=== PATIENT | male | born 1965 | race Caucasian/White ===

== ENCOUNTER 2019-04-19 15:00 | Outpatient (CLI) | payer BC | END 2019-04-19 15:01 | disposition home or self-care (01) | LOC: SLEEPLAB 15:00 | PROVIDERS: ATTEND Dentist General Practice | DX: G47.33 Obstructive sleep apnea (adult) (pediatric) (principal) | CPT/HCPCS: 95806 ==

== ENCOUNTER 2021-01-31 19:30 | Outpatient (CLI) | payer BC | END 2021-01-31 19:31 | disposition home or self-care (01) | LOC: SLEEPLAB 19:30 | PROVIDERS: ATTEND Family Medicine Sports Medicine | DX: G47.33 Obstructive sleep apnea (adult) (pediatric) (principal); G47.10 Hypersomnia, unspecified; I10 Essential (primary) hypertension; G47.00 Insomnia, unspecified | CPT/HCPCS: 95811 ==

== ENCOUNTER 2022-01-13 11:15 | Outpatient (CLI) | payer BC ==
[2022-01-13 12:29] LABS: Hemoglobin 12.7 g/dL (13.5-17.5); Mean Corpuscular HGB CONC 32.5 g/dL (32.0-36.0); Mean Corpuscular Volume 83.2 fl (81.2-95.1); Mean Platelet Volume 10.4 fl (7.4-10.4); Platelet Count 242 10x3/uL (150-450); RBC Distribution Width 13.3 % (11.5-14.5); White Blood Cell (WBC) Count 7.6 10x3/uL (3.5-10.5)
[2022-01-13 12:40] LABS: INR-International Normal Ratio 0.9; PTT 25.8 sec (22.0-33.0); Prothrombin Time 10.3 sec (9.5-12.1)
[2022-01-13 12:55] LABS: Anion Gap 15 mmol/L (10-20); BUN (Urea Nitrogen) 9 mg/dL (8.4-25.7); Calc. Creatinine Clearance 0 mL/min (70-130); Calcium 9.5 mg/dL (7.8-10.44); Carbon Dioxide 22 mmol/L (22-29); Chloride 105 mmol/L (98-107); Glucose 132 mg/dL (70-105); Potassium 4.3 mmol/L (3.5-5.1); Sodium 138 mmol/L (136-145)
[2022-01-13 18:46] LABS: SARS-CoV-2 PCR by NAA Not Detected (NotDetected)
== END 2022-01-13 11:16 | disposition home or self-care (01) ==
LOC: LABBT 11:15
PROVIDERS: ATTEND Urology
DX: Z01.818 Encounter for other preprocedural examination (principal); N40.1 Benign prostatic hyperplasia with lower urinary tract symptoms; R33.8 Other retention of urine; R39.11 Hesitancy of micturition; R97.20 Elevated prostate specific antigen [PSA]; R39.16 Straining to void; Z20.822 Contact with and (suspected) exposure to COVID-19
CPT/HCPCS: 80048; 85027; 85610; 85730; 93005; 93010; U0003; U0005

== ENCOUNTER 2022-01-16 06:34 | Day surgery (SDC) | payer BC ==
[2022-01-15 14:57] VITALS: BMI 26.9
[2022-01-16] MEDS ORDERED: Levofloxacin 500 mg/D5W 100 ml Premix Bag ONE (08:34)
[2022-01-16] MEDS ORDERED: Lidocaine 1% PF 5 ML VIAL ONE (08:39)
[2022-01-16] MEDS ORDERED: PROPOFOL 200 MG/20 ML VIAL ONE (08:39)
[2022-01-16] MEDS ORDERED: Labetalol HCl 100 MG/20 ML VIAL ONE (08:39)
[2022-01-16] MEDS ORDERED: B & O ONE (09:16)
[2022-01-16] MEDS ORDERED: Morphine 2 MG/ML VIAL ONE (10:00)
[2022-01-16] MEDS ORDERED: Oxybutynin 5 MG TAB ONE (10:47)
[2022-01-16] MEDS ORDERED: Phenazopyridine HCl 100 MG TAB ONE ×3 (10:47→11:17)
[2022-01-16] MEDS ORDERED: Phenazopyridine HCl 100 MG TAB PO SCH (11:00)
[2022-01-16] MEDS ORDERED: Oxybutynin 5 MG TAB PO SCH (11:00)
== END 2022-01-16 12:18 | disposition home or self-care (01) ==
LOC: SDC 06:34
PROVIDERS: ATTEND Urology
PROC: 0T7D8DZ Dilation of Urethra with Intraluminal Device, Via Natural or Artificial Opening Endoscopic (ICD-10-PCS; principal; 2022-01-16)
DX: N40.1 Benign prostatic hyperplasia with lower urinary tract symptoms (principal); R33.8 Other retention of urine; N13.8 Other obstructive and reflux uropathy; R39.16 Straining to void; R39.11 Hesitancy of micturition; I10 Essential (primary) hypertension; M10.9 Gout, unspecified; K21.9 Gastro-esophageal reflux disease without esophagitis; F17.290 Nicotine dependence, other tobacco product, uncomplicated; Z79.82 Long term (current) use of aspirin; Z79.84 Long term (current) use of oral hypoglycemic drugs; Z79.899 Other long term (current) drug therapy
CPT/HCPCS: J1956; J2270; J2704; L8699

== ENCOUNTER 2022-01-27 02:18 | Observation (INO) | payer BC ==
[2022-01-27 03:10] LABS: #Basophils 0.1 thou/uL (0.0-0.2); #Eosinphils 0.4 thou/uL (0.0-0.7); #Lymphocytes 2.7 thou/uL (1.20-3.40); #Monocytes 0.6 thou/uL (0.11-0.59); %Basophils 0.6 % (0.0-1.0); %Eosinophils 3.8 % (0.0-10.0); %Lymphocytes 23.2 % (21.0-51.0); %Monocytes 4.6 % (0.0-10.0); %Neutrophils 67.8 % (42.0-75.0); Hemoglobin 12.5 g/dL (14.0-18.0); Mean Corpuscular HGB CONC 32.7 g/dL (32.0-36.0); Mean Corpuscular Hemoglobin 28.1 pg (27.0-31.0); Mean Platelet Volume 8.1 fL (7.4-10.4); Platelet Count 216 thou/uL (130-400); RBC Distribution Width 12.7 % (11.5-14.5); Red Blood Cell (RBC) Count 4.43 mill/uL (4.70-6.10); White Blood Cell (WBC) Count 11.8 thou/uL (4.8-10.8)
[2022-01-27 03:29] LABS: Anion Gap 15 mmol/L (10-20); BUN (Urea Nitrogen) 8 mg/dL (8.4-25.7); Calc. Creatinine Clearance 0 mL/min (70-130); Calcium 9.6 mg/dL (7.8-10.44); Carbon Dioxide 18 mmol/L (22-29); Chloride 108 mmol/L (98-107); Glucose 141 mg/dL (70-105); Potassium 4.3 mmol/L (3.5-5.1); Sodium 137 mmol/L (136-145)
[2022-01-27 05:12] LABS: Bilirubin Moderate (Negative); Blood, Urine Large (Negative); Glucose, Urine (Dipstick) 100 mg/dL (Negative); Ketone, Urine 15 mg/dL (Negative); Leukocyte Moderate (Negative); Nitrite Positive (Negative); Protein, Urine (Dipstick) > or equal to 300 mg/dL (Neg-Trace); Specific Gravity, Urine 1.015 (1.005-1.030); pH, Urine 7.5 (5.0-9.0)
[2022-01-27 05:19] LABS: Clarity Opaque (Clear); RBC/HPF Greater than 50 HPF (0-3); WBC/HPF 0-3 HPF (0-3)
[2022-01-27] MEDS ORDERED: Cefepime 2 GM VIAL ONE (06:20)
[2022-01-27] MEDS ORDERED: cefTRIAXone\\ROCEPHIN 2 GM VIAL ONE (06:22)
[2022-01-27] MEDS ORDERED: Oxybutynin 5 MG TAB PO SCH (08:15)
[2022-01-27 10:14] LABS: SARS-CoV-2 NAA Rapid Test Not Detected (NotDetected)
[2022-01-27] MEDS ORDERED: Hyoscyamine Sulfate SL 0.125 mg Tablet ONE (13:14)
[2022-01-27] MEDS ORDERED: fentaNYL Citrate/PF 100 MCG/2 ML SYRINGE ONE ×2 (15:00→16:32)
[2022-01-27] MEDS ORDERED: Midazolam HCl 2 mg/2 ml Vial ONE (16:31)
[2022-01-27] MEDS ORDERED: Famotidine/PF 20 mg/2ml Vial ONE (16:32)
[2022-01-27] MEDS ORDERED: Ondansetron PF 4 MG/2 ML Vial ONE (16:50)
[2022-01-27] MEDS ORDERED: Lidocaine 1% PF 5 ML VIAL ONE (16:50)
[2022-01-27] MEDS ORDERED: Dexamethasone 20 MG/5 ML VIAL ONE (16:50)
[2022-01-27] MEDS ORDERED: PROPOFOL 200 MG/20 ML VIAL ONE (16:50)
[2022-01-27] MEDS ORDERED: B & O ONE (16:56)
[2022-01-27] MEDS ORDERED: Promethazine HCl 25 MG/ML VIAL IM PRN (17:39)
[2022-01-27] MEDS ORDERED: HYDROmorphone 2 MG/ML VIAL SLOW IVP PRN (17:39)
[2022-01-27] MEDS ORDERED: Meperidine HCl/PF 25 MG/ML VIAL SLOW IVP PRN (17:39)
[2022-01-27] MEDS ORDERED: Morphine Sulfate 2 MG/ML SYRINGE SLOW IVP PRN (17:39)
[2022-01-27] MEDS ORDERED: Promethazine HCl 25 MG/ML VIAL IVPB PRN (17:39)
[2022-01-27] MEDS ORDERED: Ondansetron HCl/PF 4 MG/2 ML Vial IVP PRN (17:39)
[2022-01-27] MEDS ORDERED: diphenhydrAMINE 25 MG CAP PO PRN (18:02)
[2022-01-27] MEDS ORDERED: Morphine 2 MG/ML VIAL SLOW IVP PRN (18:02)
[2022-01-27] MEDS ORDERED: Bisacodyl 10 MG SUPP PR PRN (18:02)
[2022-01-27] MEDS ORDERED: Oxybutynin 5 MG TAB PO PRN (18:02)
[2022-01-27] MEDS ORDERED: hydrALAZINE 20 MG/ML VIAL SLOW IVP PRN (18:02)
[2022-01-27] MEDS ORDERED: Hyoscyamine Sulfate SL 0.125 mg Tablet SL PRN (18:02)
[2022-01-27] MEDS ORDERED: Acetaminophen 500 MG TAB PO PRN (18:02)
[2022-01-27] MEDS ORDERED: Ondansetron PF 4 MG/2 ML Vial IVP PRN (18:02)
[2022-01-27] MEDS ORDERED: Mag-Al 1200 mg/1200 mg/30 ML UDCUP PO PRN (18:02)
[2022-01-27] MEDS ORDERED: Zolpidem Tartrate 5 MG TAB PO PRN (18:02)
[2022-01-27] MEDS ORDERED: Phenazopyridine HCl 100 MG TAB PO PRN (18:14)
[2022-01-27] MEDS ORDERED: Sodium Chloride 0.9% 1,000 ML IV SCH (18:15)
[2022-01-27] MEDS: metFORMIN 500 MG TAB PO SCH (21:27)
[2022-01-27 21:41] VITALS: BMI 26.6
[2022-01-28] MEDS ORDERED: cefTRIAXone\\ROCEPHIN 1 GM in Sodium Chloride 0.9% 100 ML IVPB SCH (06:00)
[2022-01-28 07:05] LABS: #Lymphocytes 1.5 thou/uL (1.20-3.40); #Monocytes 0.5 thou/uL (0.11-0.59); #Neutrophils 5.7 thou/uL (1.40-6.50); %Basophils 0.2 % (0.0-1.0); %Eosinophils 0.2 % (0.0-10.0); %Lymphocytes 19.2 % (21.0-51.0); %Neutrophils 74.4 % (42.0-75.0); Hemoglobin 8.5 g/dL (14.0-18.0); Mean Corpuscular HGB CONC 33.9 g/dL (32.0-36.0); Mean Corpuscular Hemoglobin 29.4 pg (27.0-31.0); Mean Corpuscular Volume 86.7 fL (78.0-98.0); Mean Platelet Volume 7.8 fL (7.4-10.4); Platelet Count 175 thou/uL (130-400); RBC Distribution Width 12.8 % (11.5-14.5); Red Blood Cell (RBC) Count 2.87 mill/uL (4.70-6.10); White Blood Cell (WBC) Count 7.6 thou/uL (4.8-10.8)
[2022-01-28 07:23] LABS: Anion Gap 10 mmol/L (10-20); BUN (Urea Nitrogen) 7 mg/dL (8.4-25.7); Calc. Creatinine Clearance 139 mL/min (70-130); Calcium 8.6 mg/dL (7.8-10.44); Carbon Dioxide 24 mmol/L (22-29); Chloride 109 mmol/L (98-107); Glucose 135 mg/dL (70-105); Potassium 4.1 mmol/L (3.5-5.1); Sodium 139 mmol/L (136-145)
[2022-01-28] MEDS: metFORMIN 500 MG TAB PO SCH (08:55)
[2022-01-28] MEDS ORDERED: Allopurinol 300 MG TAB PO SCH (09:00)
[2022-01-28] MEDS ORDERED: Amlodipine 10 MG TAB PO SCH (09:00)
[2022-01-28] MEDS ORDERED: Tamsulosin HCl 0.4 MG CAP PO SCH (09:00)
[2022-01-28] MEDS ORDERED: Rosuvastatin 10 MG TAB PO SCH (09:00)
[2022-01-28 12:03] VITALS: BP 105/70; TEMP 97.6
== END 2022-01-28 14:56 | disposition home or self-care (01) ==
LOC: ERS 02:18 → SDC 12:05 → T4-B 18:43
PROVIDERS: ADMIT Urology; ATTEND Urology
PROC: 0W3R8ZZ Control Bleeding in Genitourinary Tract, Via Natural or Artificial Opening Endoscopic (ICD-10-PCS; principal; 2022-01-28)
DX: N32.89 Other specified disorders of bladder (principal); R31.0 Gross hematuria; N39.0 Urinary tract infection, site not specified; N40.1 Benign prostatic hyperplasia with lower urinary tract symptoms; R33.8 Other retention of urine; I10 Essential (primary) hypertension; K21.9 Gastro-esophageal reflux disease without esophagitis; R73.03 Prediabetes; M10.9 Gout, unspecified; Z91.19 Patient's noncompliance with other medical treatment and regimen; Z79.82 Long term (current) use of aspirin; Z79.84 Long term (current) use of oral hypoglycemic drugs; Z79.899 Other long term (current) drug therapy; Z98.1 Arthrodesis status; Z20.822 Contact with and (suspected) exposure to COVID-19
CPT/HCPCS: 36415; 51702; 76000; 80048; 81003; 81015; 85025; 87086; 96365; 96366; 96374; 96376; G0378; J0692; J0696; J1100; J2250; J2405; J2704; J3490; J7050; S0028; U0002